=== PATIENT | male | born 1960 | race Two or more races ===

== ENCOUNTER 2020-10-08 17:31 | Emergency (ER) | payer OTHER ==
[2020-10-08 21:30] LABS: BASOPHIL 0.9 % (0-2); EOSINOPHIL 3.9 % (0-5); HCT 41.7 % (42.0-52.0); HGB 13.9 g/dl (13.2-18.0); LYMPHOCYTE 25.1 % (15-48); MCH 28.6 pg (25.0-31.0); MCHC 33.3 g/dL (32.0-36.0); MCV 85.8 fL (78.0-100.0); MONOCYTE 8.8 % (0-12); MPV 9.5 fL (6.0-9.5); NEUTROPHIL 59.4 % (41-80); NRBC 0; PLT 498 K/uL (150-400); RBC 4.86 M/uL (4.70-6.00); RDW 12.3 % (11.5-14.0); WBC 8.5 K/uL (4.0-10.5)
[2020-10-08 21:57] LABS: ALBUMIN 2.5 g/dL (3.4-5.0); BILIRUBIN - TOTAL 0.2 mg/dL (0.2-1.0); BUN/CREAT RATIO (CALC) 18.6 RATIO; CREATININE 0.59 mg/dL (0.67-1.17); POTASSIUM 4.1 mmol/L (3.5-5.1); TOTAL PROTEIN 6.5 g/dL (6.4-8.2)
[2020-10-09] MEDS ORDERED: AZITHROMYCIN250 MG PO
== END 2020-10-09 00:08 | disposition home or self-care (01) ==
LOC: FER 17:31
PROVIDERS: Emergency Medicine
DX: U07.1 COVID-19 (principal); E11.9 Type 2 diabetes mellitus without complications; R91.8 Other nonspecific abnormal finding of lung field
CPT/HCPCS: 36415; 71045; 80053; 84484; 85025; 93005; J2405; J7030